=== PATIENT | female | born 1965 ===

== ENCOUNTER 2017-07-30 08:41 | Day surgery (SDC) | payer OTHER ==
[2017-07-30] VITALS (10 sets, daily range): BP systolic 107–121; BP diastolic 56–72
[~2017-07-30] VITALS: Ht 162.6 cm; Wt 68.0 kg
[2017-07-30] MEDS ORDERED: LR 1000ml 1,000 ML IVLG SCH ×2 (09:05→10:05)
[2017-07-30] MEDS ORDERED: WELLBUTRIN XL150 M3 ORAL (09:50)
[2017-07-30] MEDS ORDERED: NORCO 10-325 T1 EACH ORAL (09:50)
[2017-07-30] MEDS ORDERED: PANTOPRAZOLE SO20 MG ORAL (09:50)
[2017-07-30] MEDS ORDERED: SYNTHROID50 MCG ORAL (09:50)
[2017-07-30] MEDS ORDERED: [UNRECOGNIZED DRUG - OTHER] (09:50)
[2017-07-30] MEDS ORDERED: SENNOSIDES8.6 MG ORAL (09:50)
[2017-07-30] MEDS ORDERED: LOVASTATIN20 MG ORAL (09:50)
[2017-07-30] MEDS ORDERED: ACIPHEX20 MG ORAL (09:50)
[2017-07-30] MEDS ORDERED: GABAPENTIN600 MG ORAL (09:50)
[2017-07-30] MEDS ORDERED: LUNESTA3 MG ORAL (09:50)
[2017-07-30] MEDS ORDERED: HYOSCYAMINE0.125 M2 PO (09:50)
[2017-07-30] MEDS ORDERED: TOPIRAMATE50 MG ORAL (09:50)
[2017-07-30] MEDS ORDERED: GAVISCON LIQUI355 ML PO (09:50)
[2017-07-30] MEDS ORDERED: TIZANIDINE HCL2 MG PO (09:50)
--- NOTE | 2017-07-30 09:56 | Short Stay Surgery H&P ---
History of Present Illness History of Present Illness Chief Complaint GERDs and abdominal pains. ANALILIA Arciniega is a 52 year old female who was admitted on for Abdominal Pain Patient History Allergies: Coded Allergies: No Known Allergies (Unverified , 07/30/17) PAST MEDICAL HISTORY: (1) Hyperlipidemia (2) Hypothyroid (3) Hyperlipidemia Past Surgeries: Social History: Medication History Scheduled Bupropion HCl (Bupropion Xl), 150 MG ORAL DAILY, (Reported) Gabapentin* (Gabapentin*), 600 MG ORAL DAILY, (Reported) Hyoscyamine Sulfate (Hyoscyamine Sulfate), 0.125 MG PO DAILY, (Reported) Levothyroxine Sodium (Synthroid), 50 MCG ORAL DAILY, (Reported) Lovastatin (Lovastatin), 20 MG ORAL BEDTIME, (Reported) Mag Carb/Al Hydrox/Alginic Ac (Gaviscon Liquid), 355 ML PO DAILY, (Reported) Pantoprazole (Pantoprazole), 20 MG ORAL DAILY, (Reported) Rabeprazole Sodium (Aciphex), 20 MG ORAL DAILY, (Reported) Sennosides* (Sennosides*), 8.6 MG ORAL DAILY, (Reported) Tizanidine Hcl (Tizanidine Hcl), 2 MG PO DAILY, (Reported) Topiramate (Topiramate), 50 MG ORAL DAILY, (Reported) Scheduled PRN Eszopiclone (Lunesta), 3 MG ORAL BEDTIME PRN for Insomnia, (Reported) Hydrocodone Bit/Acetaminophen 10-325* ([facility] 10-325*), 1 TAB ORAL Q6H PRN for For Pain, (Reported) Miscellaneous Medications [Enova ], (Reported) Review of Systems Cardiovascular: Reports: no symptoms Skeletal: Reports: other Gastrointestinal: Reports: gastro esophageal reflux disease Genitourinary: Reports: no symptoms Neurologic: Reports: no symptoms Endocrine: Reports: no symptoms Hematologic: Reports: no symptoms Physical Exam Skin: normal HENT: normal Heart: normal Lungs: normal Abdomen: normal Extremities: normal Genitourinary: normal Plan Plan of Care Upper and lower Gi endoscopy Preop Interventions none. Summary of Findings See the reports. Final Diagnosis: Attestation Are the patient's medical conditions optimized for surgery? Attestation Response: yes HARLEEN HERRERA Jul 30, 2017 09:56
--- NOTE | 2017-07-30 09:57 | Pre-Procedure Note/Attestation ---
Pre-Procedure Note/Attestation Complete Prior to Procedure Planned Procedure: left Procedure Narrative: Endoscopic examination of the upper and the lower GI tracts. Indications for Procedure Pre-Operative Diagnosis: R/O Gastritis/Peptic ucler/colitis. Attestation I attest that I discussed the nature of the procedure; its benefits; risks and complications; and alternatives (and the risks and benefits of such alternatives ), prior to the procedure, with the patient (or the patient's legal customer retention representative). I attest that, if there was a reasonable possibility of needing a blood transfusion, the patient (or the patient's legal customer retention representative) was given the [place] Department [employer] standardized written summary, pursuant to the Darrell [place] Blood Safety Act ([place] Health and Safety Code # 1645, as amended). I attest that I re-evaluated the patient just prior to the surgery and that there has been no change in the patient's H&P, except as documented below: SHARON,SAID Jul 30, 2017 09:57
--- NOTE | 2017-07-30 10:13 | Anethesia Preoperative Eval ---
Anesthesia Pre-op PMH/ROS General Date of Evaluation: Jul 30, 2017 Time of Evaluation: 09:50 Anesthesiologist: Lucy ASA Score: ASA 2 Mallampati Score Class I : Soft palate, uvula, fauces, pillars visible Class II: Soft palate, uvula, fauces visible Class III: Soft palate, base of uvula visible Class IV: Only hard plate visible Mallampati Classification: Class II Surgeon: Wiley Diagnosis: Abdominal pain Surgical Procedure: EGD, colonoscopy Family History: no anesthesia problems Allergies: Coded Allergies: No Known Allergies (Unverified , 07/30/17) Medications: see eMAR Past Medical History Cardiovascular: Denies: HTN, CAD, ID, valve dz, arrhythmia, other Pulmonary: Denies: asthma, COPD, RAUL, other Gastrointestinal/Genitourinary: Denies: GERD, CRI, ESRD, other Neurologic/Psychiatric: Denies: dementia, CVA, depression/anxiety, TIA, other Endocrine: Reports: hypothyroidism, Denies: DM, steroids, other HEENT: Denies: cataract (L), cataract (R), glaucoma, AKUTAN (L), AKUTAN (R), other Hematology/Immune: Denies: anemia, DVT, bleeding disorder, other Musculoskeletal/Integumentary: Denies: OA, RA, DJD, DDD, edema, other PMH Narrative: Hypothyroid, chronic pain, MARTINEZ's PSxH Narrative: AP, Back surgery, knee surg Anesthesia Pre-op Phys. Exam Physician Exam Last Vital Signs Date Time Temp Pulse Resp B/P (MAP) Pulse Ox O2 Delivery O2 Flow Rate FiO2 07/30/17 09:50 98.6 83 18 121/72 99 Room Air Constitutional: NAD Neurologic: CN 2-12 intact Cardiovascular: RRR, no M/R/G Respiratory: CTA Gastrointestinal: S/NT/ND Airway Exam Mallampati Score: Class II MO: full ROM: full Teeth: intact Anesthesia Pre-op A/P Risk Assessment & Plan Assessment: Abdominal pain for EGD, colonoscopy Plan: GA, TIVA Status Change Before Surgery: No Pre-Antibiotics Drug: None MATHEW PAYNE M.D. Jul 30, 2017 10:13
--- NOTE | 2017-07-30 10:14 | Immediate Post-Op Evaluation ---
Immediate Post-Op Evalulation Immediate Post-Op Evalulation Procedure: EGD, colonoscopy Date of Evaluation: Jul 30, 2017 Time of Evaluation: 10:37 IV Fluids: 550 Blood Pressure Systolic: 107 Blood Pressure Diastolic: 56 Pulse Rate: 73 Respiratory Rate: 17 O2 Sat by Pulse Oximetry: 100 Temperature (Fahrenheit): 97.7 Pain Score (1-10): 0 Nausea: No Vomiting: No Complications No complication Patient Status: awake, patent, none Hydration Status: adequate Drug: None MATHEW PAYNE M.D. Jul 30, 2017 10:14
[2017-07-30] MEDS ORDERED: fentaNYL 100 mcg/2 mL IV PRN (10:15)
--- NOTE | 2017-07-30 10:25 | Endoscopy Procedure Note ---
Endoscopy Procedure Note Indication for Procedure: Abdominal pains/GERDs Procedures Performed: EGD - Completely normal upper GI endoscopy, random biopsy from the gastric obtained., colonoscopy - Normal Total colonoscopy. Specimen: yes Estimated Blood Loss: none Anesthesiologist: Dr. Ayala Anesthesia: moderate sedation Medication Given: see anesthesia record Implant(s) used?: No 50 yrs or older w/o bx or poly: Yes 10yrs. F/U not recommended: Yes If not recommended, why?: Above average risk Med reason:<3 yrs.: System Reason:<3 yrs.: HARLEEN HERRERA Jul 30, 2017 10:25
--- NOTE | 2017-07-30 10:26 | Discharge Instructions ---
Discharge Instructions Discharge Instructions Follow up with: See dr. Jama after two weeks in the office For Congestive Heart Failure Reminder Report to your physician any weight gain of 5 pounds or more in one week. SHARON,SAID Jul 30, 2017 10:26
--- NOTE | 2017-07-30 10:37 | 48 Hour Post Anesthesia Eval ---
Post Anesthesia Evaluation Procedure: EGD, colonoscopy Date of Evaluation: Jul 30, 2017 Time of Evaluation: 11:00 Blood Pressure Systolic: 111 0: 61 Pulse Rate: 71 Respiratory Rate: 16 O2 Sat by Pulse Oximetry: 100 Airway: patent Nausea: No Vomiting: No Pain Intensity: 0 Hydration Status: adequate Cardiopulmonary Status: Stable Mental Status/LOC: patient returned to baseline Follow-up Care/Observations: As per surgery Post-Anesthesia Complications: No anesthetic complication Follow-up care needed: N/A MATHEW PAYNE M.D. Jul 30, 2017 10:37
[2017-07-30] MEDS ORDERED: Norco 7.5mg/325mg tab ORAL ONE (14:00)
--- NOTE | 2017-07-30 19:15 | Pre-op HX & Phy Repo 2 SIG ---
DATE OF ADMISSION: 07/30/2017 History Of Present Illness: The applicant is a 52-year-old Russian speaking female, who is being seen prior to undergoing the procedure for upper and lower GI endoscopy for which she has been scheduled to receive for evaluation of her GI symptoms that she has suffered subsequent to her work injury. The applicant basically has been complaining of pain being experienced over the epigastric area, radiating towards the other part of the abdomen as well as lower sides. These pains occasionally are of significant intensity as described by the patient. She reported that she started to experience this pain after she was injured in January 2012 accident at work site. As such, the patient also has been treated with other medications including strong analgesics and nonsteroidal anti-inflammatory agents after which time, she started to experience these symptoms of abdominal pains I mentioned earlier. She also has been experiencing some episodes of nausea that occurs during the day. As I mentioned, she also does have symptoms of gastroesophageal reflux consistent with heartburn. She denies having, however, any difficulty swallowing. There is no history of hematemesis, melena, hematochezia, gastrointestinal bleeding, etc. 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 At that point, the day of injury, she was injured as she was coming down the steps and she fell down eight steps with significant injuries that occurred over the concrete to her body. Past Medical History: Hyperlipidemia and hypothyroidism for which she is taking medication. Past Surgical History: Left knee meniscal tear surgery and surgery in dorsal lumbar area for disk condition related to work accident. Also, she has had history of appendectomy and cholecystectomy. Medications: Basically, at this time, Protonix and topiramate, celecoxib, gabapentin, tizanidine, ibuprofen, Pyridium, losartan, and levothyroxine. ALLERGIES: None significant. Habits: The applicant denies drinking alcohol or smoking cigarettes and does not use illicit drugs. REVIEW OF SYSTEMS: Basically history of present illness. PHYSICAL EXAMINATION: General: Reveals an alert and well-oriented female, does not seem to be in any acute distress. She looks well developed and nourished. HEENT: Normocephalic. Pupils equal in size and reactive to light and accommodation. No visible jaundice. NECK: Supple. No JVD, thyromegaly, or adenopathy. CHEST: Clear to auscultation and percussion. No rales or rhonchi. HEART: S1 and S2 are normal. Regular rhythm. No gallops or murmur. Abdomen: Soft, but tender all over the area. There is no palpable mass. No hepatosplenomegaly. Bowel sounds are present. No ascites. EXTREMITIES: Unremarkable. PRELIMINARY IMPRESSION: 1. Epigastric pain of uncertain etiology, rule out gastroesophageal reflux aggravated by side effects of NSAID medications used for the treatment of above injury, rule out underlying acid-induced gastropathy, peptic ulcer disease, duodenal ulcers, etc. 2. Generalized abdominal pain of uncertain etiology, rule out colitis versus irritable bowel syndrome, aggravated by side effects of NSAID medications and strong analgesics. 3. Severe anxiety and depression. Recommendations: The applicant seems to be stable at this time to undergo the procedures of upper and lower GI endoscopy for which she has been scheduled. She understands the risks and benefits and signed the consent. Said Latrell Jama DR: SULEMA JOB#: [id number] CC: EYAD
--- NOTE | 2017-07-30 21:45 | Procedure Note ---
DATE OF PROCEDURE: 07/30/2017 SURGEON: Michel Jama M.D. PROCEDURE: Esophagogastroduodenoscopy with biopsy. Preoperative Diagnoses: Abdominal pain, epigastric pain, and history of gastroesophageal reflux. Postoperative Diagnosis: Completely normal upper gastrointestinal endoscopy. Biopsy was taken per random from gastric body. MEDICATIONS USED: Per Dr. Ayala, anesthesiologist. INSTRUMENT: GIF Olympus upper gastrointestinal video endoscope. Description Of Procedure: The patient, after arriving in the endoscopy unit, was told about risks and benefits of the procedure, which she accepted and signed the informed consent. She was then put on the left lateral decubitus position. After adequate IV sedation, the scope was gently passed through the cricopharyngeal area, was lodged in the upper esophagus and gradually advanced towards the gastroesophageal junction. The entire length of the esophagus looked normal. No evidence of varices, inflammatory process, or ulceration, etc. was found. GE junction also looked normal. There was no evidence of Calderon's or hiatal hernia. The scope was then guided into the stomach. Gastric cavity was distended revealing basically normal gastric lining and mucosa. There was no evidence of gastritis, peptic ulcer disease, tumors, polyps, etc. At this point, one random biopsy from gastric body was obtained. Subsequently, the scope was passed through the antrum and from there into the pylorus. First and second portion of duodenum were found to be also completely normal. After obtaining one random biopsy, procedure was terminated. The patient tolerated the procedure well and left the endoscopy room in good condition. Michel Jama M.D. DR: AICHA JOB#: [id number] CC:
--- NOTE | 2017-07-30 22:00 | Operative Note - Dictated ---
DATE OF OPERATION: 07/30/2017 SURGEON: Michel Jama M.D. PROCEDURE: Total colonoscopy. PREOPERATIVE DIAGNOSIS: Abdominal pain. POSTOPERATIVE DIAGNOSIS: Completely normal total colonoscopy. MEDICATIONS USED: Per Dr. Ayala, anesthesiologist. INSTRUMENT: GIF Olympus videocolonoscope. Description Of Procedure: The patient after arriving endoscopy unit, was told about risks and benefits of the procedure, which she accepted and signed the informed consent. She was then put on the left lateral decubitus position. After adequate IV sedation, the scope was gently passed through the anal area and examination of the rectum did not reveal any pathology and there were no any major hemorrhoids. The scope at this time was passed into the rectosigmoid area, guided into the descending colon, gradually advanced towards the splenic flexure, transverse colon, and all the way to the hepatic flexure, and finally was guided into the right colon. All these areas remained to be completely normal without any particular pathology found up to the base of the cecum as examined. Finally, within 8 minutes, the scope was gradually pulled out and re-evaluation of the colon did not reveal any other abnormality. The colon cleanup was adequate. The patient tolerated the procedure well and left the endoscopy room in a good condition. Michel Jama M.D. DR: SULEMA JOB#: [id number] CC:
== END 2017-07-30 15:20 | disposition home or self-care (01) ==
LOC: GAS 08:41
DX: R10.9 Unspecified abdominal pain (principal); K29.50 Unspecified chronic gastritis without bleeding; B96.81 Helicobacter pylori [H. pylori] as the cause of diseases classified elsewhere; K21.9 Gastro-esophageal reflux disease without esophagitis; Z90.89 Acquired absence of other organs; Z90.49 Acquired absence of other specified parts of digestive tract; F41.9 Anxiety disorder, unspecified; F32.9 Major depressive disorder, single episode, unspecified
CPT/HCPCS: 94003; 94150